=== PATIENT | female | born 1995 | race Two or more races ===

== ENCOUNTER 2020-06-14 12:14 | Emergency (ER) | payer OTHER ==
[~2020-06-14] VITALS: Ht 165.1 cm; Wt 60.3 kg
[2020-06-14] MEDS ORDERED: ELIQUIS5 MG (12:37)
[2020-06-14] MEDS ORDERED: ELIQUIS5 MG PO (16:51)
== END 2020-06-14 17:33 | disposition home or self-care (01) ==
LOC: ER 12:14
DX: I82.4Z2 Acute embolism and thrombosis of unspecified deep veins of left distal lower extremity (principal); M79.662 Pain in left lower leg; Z03.818 Encounter for observation for suspected exposure to other biological agents ruled out

== ENCOUNTER 2025-01-23 12:45 | Outpatient (CLI) | payer OTHER ==
[~2025-01-23 12:45] MED LIST: ELIQUIS5 MG; ELIQUIS5 MG PO
== END 2025-01-23 12:50 | disposition home or self-care (01) ==
LOC: RAD 12:45
PROVIDERS: ATTEND Physical Medicine & Rehabilitation
DX: M25.511 Pain in right shoulder (principal); M25.552 Pain in left hip